=== PATIENT | female | born 1955 | race Caucasian/White ===

== ENCOUNTER 2017-11-30 19:03 | Observation (INO) | payer OTHER ==
[~2017-11-30] VITALS: Ht 165.1 cm; Wt 68.0 kg
[~2017-11-30 19:03] MED LIST: ATORVASTATIN CA10 MG PO; GABAPENTIN300 MG PO; PERCOCET 325 MG1 TA2 PO; TYLENOL XSTR500 MG PO; VALACYCLOVIR1 GM PO
--- NOTE | 2017-11-30 19:20 | ED CARDIAC/CP/PALPITATIONS ---
History of Present Illness General Chief Complaint: Chest Pain Stated Complaint: SENT IN BY WALK IN FOR CP Source: patient, family Exam Limitations: no limitations Vital Signs & Intake/Output Vital Signs & Intake/Output Vital Signs Date Time Temp Pulse Resp B/P B/P Pulse O2 O2 Flow FiO2 Mean Ox Delivery Rate 11/30 1955 Room Air 11/30 1911 98.2 106 18 147/87 98 Room Air Allergies Coded Allergies: guaifenesin (From MUCINEX) (PAIN IN BACK AND LUNGS 11/30/17) Uncoded Allergies: SEASONAL (06/13/15) Reconcile Medications Aspirin (Ecotrin*) 81 MG TABLET. 1 TAB PO QPM HEART/BLOOD (Reported) Atorvastatin Calcium 10 MG TABLET 1 TAB PO DAILY CHOLESTEROL (Reported) Triage Note: PER PT FEW DAYS OF CP UNDER L BREAST COMES AND GOES TODAY STARTED AT 1700, BURNING TO ESOPHAGUS, NO SOB NO NAUSEA. PAIN CURRENTLY 0/10 Triage Nurses Notes Reviewed? yes Onset: Gradual Duration: day(s): (5) Timing: recent history Location: LEFT CHEST/BREAST Radiation: LEFT BACK, LEFT SHOULDER Activities at Onset: activity, rest Prior Chest Pain/Card Workup: no prior chest pain Aspirin Today: 81 mg x 1 Associated Symptoms: OCC SOB, OCC DIAPHORESIS HPI: This is a 62-year-old female with history of high cholesterol who presents to the ER with her family for chief complaint of left-sided chest pain on and off since Saturday evening. Saturday evening she states it felt like a burning sensation and thought maybe something she ate. She has experienced multiple times in the last several days. Occasional shortness of breath and occasional sweating. 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 No history of previous coronary artery disease. She is compliant with her medications. She had no chest pain at triage and took an aspirin 81 mg prior to arrival however states she states now she feels a pinching sensation underneath her left breast. Sometimes it goes to her back and sometimes it goes up to her left shoulder. She has never seen a smelting engineer before. Positive family history of coronary artery disease in mother and grandmother. Patient denies any fever chills or productive cough. She denies any prolonged recent travel or blood clotting disorders. Past History Travel History Traveled to [place] past 21 day No Medical History Any Pertinent Medical History? see below for history Neurological: NONE EENT: NONE Cardiovascular: hyperlipidemia Respiratory: NONE Gastrointestinal: NONE Hepatic: NONE Renal: NONE Musculoskeletal: NONE Psychiatric: anxiety Endocrine: NONE Blood Disorders: NONE Cancer(s): NONE BASE REMOVER/Reproductive: NONE Surgical History Surgical History: C-SECT X 4 Psychosocial History What is your primary language Mozambican Tobacco Use: Never used Family History Comment: MOTHER CAD, DM GRANDMOTHER CAD BROTHER RUPTURED CEREBRAL ANEURYSM Hx Contributory? Yes Review of Systems Review of Systems Constitutional: Reports: diaphoresis. Denies: chills, fever. EENTM: Reports: no symptoms. Respiratory: Reports: short of breath. Denies: cough, sputum production. Cardiovascular: Reports: chest pain. Denies: palpitations, peripheral edema. GI: Denies: abdominal pain. Genitourinary: Reports: no symptoms. Musculoskeletal: Reports: back pain. Skin: Reports: no symptoms. Neurological/Psychological: Reports: no symptoms. Hematologic/Endocrine: Denies: bruising, bleeding, polyuria, polydipsia. Immunologic/Allergic: Reports: no symptoms. All Other Systems: Reviewed and Negative Physical Exam Physical Exam General Appearance: well developed/nourished, alert, awake, mild distress Head: atraumatic, normal appearance Eyes: Bilateral: normal appearance, PERRL, EOMI. Ears, Nose, Throat: normal pharynx, normal ENT inspection, hearing grossly normal Neck: normal inspection, supple, JVD Respiratory: normal breath sounds, chest non-tender, no respiratory distress Cardiovascular: regular rate/rhythm, normal peripheral pulses Gastrointestinal: normal bowel sounds, soft, non-tender Back: normal inspection, normal range of motion Extremities: normal inspection, normal capillary refill, normal range of motion, no edema Neurologic/Psych: no motor/sensory deficits, awake, alert, oriented x 3, normal gait, normal mood/affect Skin: intact, normal color, warm/dry Core Measures ACS in differential dx? Yes CVA/TIA Diagnosis No Sepsis Present: No Sepsis Focused Exam Completed? No Progress Differential Diagnosis: AMI, aortic dissection, musculoskeletal pain, pneumonia, pneumothorax, pulmonary embolism, PUD/GERD, unstable angina Plan of Care: Orders Procedure Date/time Status Heart Healthy Diet 12/[address] in observation 11/30 2037 Active ED Holding Orders 11/30 2037 Active Vital Signs 11/30 2037 Active Code Status 11/30 2037 Active XRY-CHEST XRAY, TWO VIEWS 11/30 2008 Active PARTIAL THROMBOPLASTIN TIME 11/30 1932 Complete PROTHROMBIN TIME 11/30 1932 Complete D-DIMER 11/30 1932 Complete Telemetry/Airline Customer Service Agent 11/30 1919 Active TROPONIN LEVEL 11/30 1910 Complete LIPASE 11/30 1910 Complete COMPREHENSIVE METABOLIC PANEL 11/30 1910 Complete CBC WITHOUT DIFFERENTIAL 11/30 1910 Complete AMYLASE 11/30 1910 Complete EKG 11/30 1903 Active Laboratory Tests 11/30/171947: Anion Gap 15, Estimated GFR > 60, BUN/Creatinine Ratio 21.4, Glucose 101 H, Calcium 9.6, Total Bilirubin 0.3, AST 26, ALT 33, Alkaline Phosphatase 86, Troponin I < 0.01, Total Protein 7.5, Albumin 4.3, Globulin 3.2, Albumin/ Globulin Ratio 1.3, Amylase 82, Lipase 128 11/30/171944: PT 11.2, INR 1.07, APTT 32, D-Dimer High Sensitivty < 200, CBC w Diff NO MAN DIFF REQ, RBC 4.61, MCV 84.8, MCH 27.9, MCHC 32.9 L, RDW 14.9 H, MPV 8.6, Gran % 53.7, Lymphocytes % 36.0, Monocytes % 7.1, Eosinophils % 2.6, Basophils % 0.6, Absolute Granulocytes 4.9, Absolute Lymphocytes 3.3, Absolute Monocytes 0.6, Absolute Eosinophils 0.2, Absolute Basophils 0.1 Diagnostic Imaging: Viewed by Me: Radiology Read. Discussed w/RAD: Radiology Read. Initial ED EKG: NSR, LBBB Prior EKG: changed Rhythm Strip: normal sinus rhythm Comments: PATIENT: JOSE NDIAYE PRESENT AGE: 62 PATIENT ACCOUNT NO: [id number] : 54 LOCATION: [facility] ORDERING PHYSICIAN: Lucy Martínez MD SERVICE DATE: 11/30/17 EXAM TYPE: RAD - XRY-CHEST XRAY, TWO VIEWS EXAMINATION: XR CHEST CLINICAL INFORMATION: Left-sided chest pain, mild shortness of breath COMPARISON: 12/14/2014 TECHNIQUE: 2 views of the chest were obtained. FINDINGS: Heart size is normal. Mediastinal contours are normal. Lungs are clear without consolidation, effusion or pneumothorax. Visualized osseous structures appear intact. IMPRESSION: No acute pulmonary process. DICTATED BY: Charleen Li MD DATE/TIME DICTATED:11/30/172128 CONTROLS ENGINEER:CONNOR DATE/TIME TRANSCRIBED:11/30/172128 CONFIDENTIAL, DO NOT COPY WITHOUT APPROPRIATE AUTHORIZATION. <Electronically signed in Other Vendor System> SIGNED BY: Charleen Li MD 11/30/172134 Departure Departure Time of Disposition: 2037 Disposition: STILL A PATIENT Condition: Stable Clinical Impression Primary Impression: Acute electrocardiogram changes Referrals: Janeen Lowery MD (PCP/Family) Departure Forms: Customer Survey General Discharge Information Observation Note Spoke With: Xander TARANGO,[facility] Physician Advisor Notified: ERLIN BROOKE DO Place Patient In: Non-ED OBS Care Area Rationale for Observation: My rational for observation is as follows [TELE MONITOR, SERIAL EKG/TROPONIN, ASPIRIN, NITRATES, CARDIOLOGY CONSULTATION, CONSIDER ECHOCARDIOGRAM]. Critical Care Note Critical Care Note Critical Care Time: non-applicable
[2017-11-30 19:58] LABS: ABSOLUTE BASOPHIL COUNT 0.1 /CUMM (0.0-0.2); ABSOLUTE EOSINOPHIL COUNT 0.2 /CUMM (0.0-0.7); ABSOLUTE GRANULOCYTE CT 4.9 /CUMM (1.4-6.5); ABSOLUTE LYMPH COUNT 3.3 /CUMM (1.2-3.4); ABSOLUTE MONOCYTE COUNT 0.6 /CUMM (0.10-0.60); BASOPHIL % 0.6 % (0.0-2.0); EOSINOPHIL % 2.6 % (0-5); GRANULOCYTE % 53.7 % (42.2-75.2); MEAN CORPUSCULAR HGB 27.9 PG (27.0-31.0); MEAN CORPUSCULAR HGB CONC 32.9 G/DL (33.0-37.0); MEAN CORPUSCULAR VOLUME 84.8 FL (81.0-99.0); MEAN PLATELET VOLUME 8.6 FL (7.4-10.4); PLATELET COUNT 273 /CUMM (130-400); RBC DISTRIBUTION WIDTH 14.9 % (11.5-14.5); RED BLOOD CELL CT 4.61 /CUMM (4.20-5.40); WHITE BLOOD CELL COUNT 9.2 /CUMM (4.8-10.8)
[2017-11-30 20:07] LABS: PT 11.2 SEC (9.4-12.5); PTT 32 SEC (25-37)
[2017-11-30] MEDS ORDERED: ATORVASTATIN CA10 M1 PO (20:27)
[2017-11-30] MEDS ORDERED: ASPIRIN EC81 M1 PO (20:27)
--- NOTE | 2017-11-30 21:03 | History & Physical ---
Brodie TARANGO,[facility] 11/30/172101: General Information and HPI MD Statement: I have seen and personally examined JOSE REED and documented this H&P. The patient is a 62 year old F who presented with a patient stated chief complaint of [Chest Pain]. Source of Information: patient Exam Limitations: no limitations History of Present Illness: Ms. Reed is a 62 y/o lady with PMH significant for hyperlipidemia and anxiety presents with chest pain under her left breast starting this Saturday. Patient was in her usual state of health until this Saturday when she noticed burning chest pain under her left breast, sometimes radiating to her back. She took Tylenol for the pain, thinking that she might have pulled her muscle, which helped relieve the pain. Pain is nonexertional without any precipitating or aggravating factors. Continues to get the chest pain on and off. Her last episode of chest pain this evening, when her took her to the urgent care clinic and she was sent to the ER after finding some changes in her EKG. Also reports 3 episodes of diarrhea on Saturday which have resolved since then. Denies any shortness of breath, palpitations, cough, sputum production, fever/ chills, abdominal pain, diarrhea or nausea/vomiting. Also denies any previous episodes of similar chest pain. Allergies/Medications Allergies: Coded Allergies: guaifenesin (From MUCINEX) (PAIN IN BACK AND LUNGS 11/30/17) Uncoded Allergies: SEASONAL (06/13/15) Home Med list Aspirin (Ecotrin*) 81 MG TABLET.DR 1 TAB PO QPM HEART/BLOOD (Reported) Atorvastatin Calcium 10 MG TABLET 1 TAB PO DAILY CHOLESTEROL (Reported) Past History Travel History Traveled to [place] past 21 day No Medical History Neurological: NONE EENT: NONE Cardiovascular: hyperlipidemia Respiratory: NONE Gastrointestinal: NONE Hepatic: NONE Renal: NONE Musculoskeletal: NONE Psychiatric: anxiety Endocrine: NONE Blood Disorders: NONE Cancer(s): NONE HEAD OF HISTORY/Reproductive: NONE Surgical History Surgical History: C-SECT X 4 Past Family/Social History Psychosocial History Where do you live? Home Who Do You Live With? spouse Services at Home: None Smoking Status: Never Smoked ETOH Use: denies use Illicit Drug Use: denies illicit drug use Functional Ability ADLs Independent: dressing, eating, toileting, bathing. Ambulation: independent IADLs Independent: shopping, housework, finances, food prep, telephone, transportation , medication admin. Review of Systems Review of Systems Constitutional: Reports: no symptoms. EENTM: Reports: no symptoms. Cardiovascular: Reports: chest pain. Respiratory: Reports: no symptoms. GI: Reports: no symptoms. Genitourinary: Reports: no symptoms. Musculoskeletal: Reports: no symptoms. Skin: Reports: no symptoms. Neurological/Psychological: Reports: no symptoms. Hematologic/Endocrine: Reports: no symptoms. Immunologic/Allergic: Reports: no symptoms. All Other Systems: Reviewed and Negative Exam & Diagnostic Data Last 24 Hrs of Vital Signs/I&O Vital Signs Date Time Temp Pulse Resp B/P B/P Pulse O2 O2 Flow FiO2 Mean Ox Delivery Rate 11/30 2305 98.1 86 18 110/62 95 Room Air Room Air 11/30 2211 98.5 85 14 105/56 97 Room Air 11/30 1956 Room Air 11/30 1911 98.2 106 18 147/87 98 Room Air Intake & Output 12/01 0800 12/01 0000 11/30 1600 Intake Total 200 Output Total Balance 200 Intake, Oral 200 Patient 150 lb Weight Physical Exam General Appearance Alert, Oriented X3, Cooperative, No Acute Distress Skin No Rashes, No Breakdown HEENT Atraumatic, PERRLA, EOMI, Mucous Membr. moist/pink Neck Supple, No JVD, No thryomegaly Cardiovascular Regular Rate, Normal S1, Normal S2, No Murmurs Lungs Clear to Auscultation, Normal Air Movement Abdomen Normal Bowel Sounds, Soft, No Tenderness Extremities No Clubbing, No Cyanosis, No Edema, Normal Pulses Last 24 Hrs of Labs/Randy: Laboratory Tests 12/01/17 0200: Troponin I Pending 11/30/171947: Anion Gap 15, Estimated GFR > 60, BUN/Creatinine Ratio 21.4, Glucose 101 H, Hemoglobin A1c Pending, Calcium 9.6, Total Bilirubin 0.3, AST 26, ALT 33, Alkaline Phosphatase 86, Troponin I < 0.01, Total Protein 7.5, Albumin 4.3, Globulin 3.2, Albumin/Globulin Ratio 1.3, Amylase 82, Lipase 128, TSH 3.550 11/30/171944: PT 11.2, INR 1.07, APTT 32, D-Dimer High Sensitivty < 200, CBC w Diff NO MAN DIFF REQ, RBC 4.61, MCV 84.8, MCH 27.9, MCHC 32.9 L, RDW 14.9 H, MPV 8.6, Gran % 53.7, Lymphocytes % 36.0, Monocytes % 7.1, Eosinophils % 2.6, Basophils % 0.6, Absolute Granulocytes 4.9, Absolute Lymphocytes 3.3, Absolute Monocytes 0.6, Absolute Eosinophils 0.2, Absolute Basophils 0.1 Diagnostic Data EKG Results NSR with LBBB Heart Rate 66 QTc 449 CXR Results IMPRESSION: No acute pulmonary process. Assessment/Plan Assessment: Ms. Reed is a 62 y/o lady with PMH significant for hyperlipidemia and anxiety presents with chest pain under her left breast starting this Saturday. A/P; 1. Chest Pain; recent EKG shows left bundle branch block but the pattren has slightly changed from the previous EKG(from 2014). Atypical Chest pain could be a presentation of MD in females. - We will observe the patient on telemetry floor from 24 to 48 hours. - Serial troponins and EKG to rule out ACS(initial troponin level is negative). - Echocardiogram - Cardiology consult in am. - Lipid panel and hemoglobin A1c. - Continue aspirin and atorvastatin(will increase the dose to 40 mg daily). - Notroglycerin as needed for chest pain. DVT prophylaxis; subcutaneous Lovenox Vision is full code As Ranked By This Provider Problem List: 1. Atypical chest pain Core Measures/Misc (07/21) Acute Coronary Syndrome ACS Diagnosis: No Congestive Heart Failure Congestive Heart Failure Diagnosis No Cerebrovascular Accident CVA/TIA Diagnosis: No VTE (View Protocol) VTE Risk Factors Age>40 No Mechanical VTE Prophylaxis d/t N/A MechProphylax Ordered No VTE Pharm Prophylaxis d/t NA PharmProphylax ordered Sepsis (View protocol) Sepsis Present: No Xander TARANGO, [facility] 12/01/17 0322: Attending MD Review Statement Attending Statement Attending MD Statement: examined this patient, discuss w/resident/PA/STRAIGHT EDGER, agreed w/resident/PA/STRAIGHT EDGER, discussed with family, reviewed images, amended to note Attending Assessment/Plan: 62 yo F with h/o HLD, ?TIA, family h/o CAD in mother (age 80's), is here for evaluation of left sided chest pain. Patient describes left sided sharp pain under her left breast, intermittent, radiating to the back at times, associated with dyspnea and palpitations, with no relation to exertion or rest. She first noticed it 4 days ago soon after dinner followed by 2-3 episodes of diarrhea, which she attributed to 'gas'/stomach virus. Over the past 3 days, she has had it intermittently (character of pain fluctuates between sharp or muscle pull ' type'), but this has not affected her work. She took tylenol at times with some relief. Today she had recurrence of chest pain but it did not resolve, so she went to a walk-in clinic, who then referred her to ER. She received nitro in the ER and she is currently pain free. She takes a baby aspirin daily. She has never seen a steel die press set up operator or undergone stress test. Vitals stable. Examination is unremarkable. Labs are benign with negative troponin. EKG: sinus rhythm with LBBB (new), QRS duration seems to have increased from prior. CXR: no acute process. Assessment and plan: 1. Chest pain seems atypical or musculoskeletal in origin. However, given her risk factors would be prudent to rule out ACS. 2. New LBBB 3. Hyperlipidemia - 23 hour observation on Telemetry - Serial EKG and troponin - Obtain echocardiogram to assess LV function and valvular disorders - Cardio consult in AM - Continue aspirin and statin - Nitro as needed for pain - Supplemental oxygen - Check lipid panel, TSH, free T4 and HbA1c DVT ppx Lovenox. Full code. Observation Initial Note - I have personally examined JOSE REED on 12/01/17 at 0322. The disposition of JOSE REED is uncertain at this time and before a determination can be made, she requires a period of observation for the following reasons [Chest pain, rule out ACS] [place] TARANGO,Luis 12/01/17 0453: Resident Review Statement Resident Statement: examined this patient, discussed with digital marketing intern, agreed with digital marketing intern Other Findings: This is a 62-year-old [place] woman with past medical history significant for hyperlipidemia, one questionable episode of TIA, who comes in for chief complaint of chest pain. She described it as a sharp pain under her left breast that radiates to her back that first started on Saturday. The pain is intermittent and does not extend to jaw or l. arm, it is not exertional in nature and she states it worsens with emotional stress. She initially thought it was a muscle pull and used Tylenol with some relief. She has noted this pain intermittently for the past 4 days. This evening around 7pm she noted the pain return again. Since it seemed a little more persistent than usual and she felt some additional malaise, she went to urgent care who sent her to ED for EKG changes. Patient received nitroglycerin in ED and noted relief of her discomfort. She does take a baby aspirin every day and is on a statin for the last 6 months. Vitals: 98.2, 106, 18, 147/87, satting 90% on room air. Labs: Glucose 101, negative troponin 1. Negative amylase and lipase. Negative d-dimer. INR 1.07. EKG EKG done at 2:50 shows inversions in V3 and LBB. Subsequent EKG shows LBBB with resolution of inversion. Rate 66 and QTC 43 ASSESSMENT: This is a 62-year-old female with past medical history significant for hyperlipidemia hospital previous TIA, who comes in with a chief complaint of chest pain. While the chest pain does sound atypical in nature and pt has ESTUARDO score 2 (ASA use and angina in 24 hrs); however, given EKG changes patient will come to telemetry floor under OBS status for further work up. PLAN: Chest pain: Seems atypical in nature; however there are some EKG changes concerning for LBBB. Note that pt's old EKG in 2014 is suggestive of LBB changes as well. Not sure of acuity of change. * Cardio consult * EKG and troponins * Echocardiogram * Continue aspirin * Continue statin but at higher dose * Nitroglycerin when necessary chest pain * PRN O2 for sats >92 * Lipid panel in AM * Check thyroid panel * Check A1c
--- NOTE | 2017-11-30 21:35 | RADIOLOGY REPORT ---
EXAMINATION: XR CHEST CLINICAL INFORMATION: Left-sided chest pain, mild shortness of breath COMPARISON: 12/14/2014 TECHNIQUE: 2 views of the chest were obtained. FINDINGS: Heart size is normal. Mediastinal contours are normal. Lungs are clear without consolidation, effusion or pneumothorax. Visualized osseous structures appear intact. IMPRESSION: No acute pulmonary process.
[2017-11-30 23:05] VITALS: BP 110/62
[2017-12-01 07:03] VITALS: BP 108/64
--- NOTE | 2017-12-01 08:47 | PN- Housestaff ---
Burke TARANGO,Cammy 12/01/17 0846: Subjective Follow-up For: Chest pain Complaints: no complaints Tele-Events Since Last Visit: Sinus rhythm heart rate 90 Subjective: Patient was examined at bedside today. She was sitting comfortably in her bed. No overnight events. She offers no complaints. She denies chest pain, chest pressure, left arm pain, jaw pain, shortness of breath, nausea, abdominal pain. Review of Systems Constitutional: Reports: no symptoms. Cardiovascular: Reports: no symptoms. Respiratory: Reports: no symptoms. Gastrointestinal: Reports: no symptoms. Genitourinary: Reports: no symptoms. Objective Last 24 Hrs of Vital Signs/I&O Vital Signs Date Time Temp Pulse Resp B/P B/P Pulse O2 O2 Flow FiO2 Mean Ox Delivery Rate 12/01 0703 97.9 68 18 108/64 96 Room Air 11/30 2305 98.1 86 18 110/62 95 Room Air Room Air 11/30 2211 98.5 85 14 105/56 97 Room Air 11/30 1955 Room Air 11/30 191 98.2 106 18 147/87 98 Room Air Intake & Output 12/01 1600 12/01 0800 12/01 0000 Intake Total 100 200 Output Total Balance 100 200 Intake, Oral 100 200 Patient 150 lb Weight Physical Exam General Appearance: Alert, Oriented X3, Cooperative, No Acute Distress Cardiovascular: Regular Rate, Normal S1, Normal S2, No Murmurs Lungs: Normal Air Movement Abdomen: Soft, No Tenderness, No Hepatospenomegaly Neurological: Strength at 5/5 X4 Ext, Normal Tone, Sensation Intact Extremities: No Edema Vascular: Normal Pulses Current Medications: Current Medications Sig/Benajmin Start time Last Medication Dose Route Stop Time Status Admin Acetaminophen 650 MG Q6P PRN 11/30 2199 AC PO Acetaminophen 1,000 MG Q6P PRN 11/30 2199 AC IV Aspirin Buffered 81 MG QPM 12/01 2199 AC PO Atorvastatin Calcium 40 MG 1700 11/30 2214 AC 12/01 PO 0201 Enoxaparin Sodium 40 MG DAILY 12/01 1000 AC 12/01 SC 1000 Morphine Sulfate 4 MG Q4P PRN 11/30 2199 AC IV Nitroglycerin 0.5 GM Q6P PRN 11/30 2214 AC TOP Nitroglycerin 0.4 MG ONCE ONE 11/30 1944 DC 11/30 SL 11/30 Ondansetron HCl 4 MG Q6P PRN 11/300 AC IV Last 24 Hrs of Lab/Randy Results Last 24 Hrs of Labs/Mics: Laboratory Tests 12/01/17 1005: Troponin I < 0.01 12/01/17 1005: Anion Gap 16, Estimated GFR > 60, BUN/Creatinine Ratio 21.7, Triglycerides 66, Cholesterol 144, LDL Cholesterol, Calc 84, HDL Cholesterol 47, Cholesterol/HDL Ratio 3, CBC w Diff NO MAN DIFF REQ, RBC 4.33, MCV 85.3, MCH 28.3, MCHC 33.2, RDW 14.8 H, MPV 8.8, Gran % 55.6, Lymphocytes % 33.5, Monocytes % 6.9, Eosinophils % 3.5, Basophils % 0.5, Absolute Granulocytes 3.6, Absolute Lymphocytes 2.2, Absolute Monocytes 0.5, Absolute Eosinophils 0.2, Absolute Basophils 0 12/01/17 0200: Troponin I < 0.01 11/30/171947: Anion Gap 15, Estimated GFR > 60, BUN/Creatinine Ratio 21.4, Glucose 101 H, Hemoglobin A1c Pending, Calcium 9.6, Total Bilirubin 0.3, AST 26, ALT 33, Alkaline Phosphatase 86, Troponin I < 0.01, Total Protein 7.5, Albumin 4.3, Globulin 3.2, Albumin/Globulin Ratio 1.3, Amylase 82, Lipase 128, TSH 3.550 11/30/171944: PT 11.2, INR 1.07, APTT 32, D-Dimer High Sensitivty < 200, CBC w Diff NO MAN DIFF REQ, RBC 4.61, MCV 84.8, MCH 27.9, MCHC 32.9 L, RDW 14.9 H, MPV 8.6, Gran % 53.7, Lymphocytes % 36.0, Monocytes % 7.1, Eosinophils % 2.6, Basophils % 0.6, Absolute Granulocytes 4.9, Absolute Lymphocytes 3.3, Absolute Monocytes 0.6, Absolute Eosinophils 0.2, Absolute Basophils 0.1 Assessment/Plan Assessment: Ms. Reed is a 62 y/o lady with PMH significant for hyperlipidemia and anxiety presents with chest pain under her left breast starting this Saturday. Observed in telemetry for further evaluation and management. A/P; 1. Chest Pain Patient admitted for chest pain with EKG finding of left bundle branch block. Today EKG shows a normal sinus rhythm with first-degree AV block. Troponin so far negative. - We will observe the patient on telemetry floor from 24 to 48 hours. - Echocardiogram - Seen by cardiology who suggested due to stress test tomorrow. -Nothing by mouth from midnight. -We will continue aspirin, atorvastatin, nitroglycerin. -Patient sodium is 147 today. We'll encourage by mouth intake. And follow her BEP in a.m. DVT prophylaxis; subcutaneous Lovenox full code Diet-heart healthy diet Problem List: 1. Atypical chest pain Pain Ratin Pain Location: CHEST P[AIN Pain Goal: Remain pain free Pain Plan: NITROGLYCERINE Tomorrow's Labs & Rationales: NONE Pedro Hurtado 12/01/17 1501: Attending MD Review Statement Attending Statement Attending MD Statement: examined this patient, discuss w/resident/PA/MESSENGER FLOORPERSON, agreed w/resident/PA/MESSENGER FLOORPERSON, discussed with family, reviewed EMR data (avail), discussed with nursing Attending Assessment/Plan: Pt with chest pain on and off since saturday in precordial region radiating to the back and left shoulder area. D/w Cardiology. Plan to cont on telemetry and will get stress test tomorrow. Echo pending. based on test results will plan further care plan. d/w pt and pts family at bedside the care plan.
[2017-12-01 10:56] LABS: ABSOLUTE BASOPHIL COUNT 0 /CUMM (0.0-0.2); ABSOLUTE EOSINOPHIL COUNT 0.2 /CUMM (0.0-0.7); ABSOLUTE GRANULOCYTE CT 3.6 /CUMM (1.4-6.5); ABSOLUTE LYMPH COUNT 2.2 /CUMM (1.2-3.4); ABSOLUTE MONOCYTE COUNT 0.5 /CUMM (0.10-0.60); BASOPHIL % 0.5 % (0.0-2.0); EOSINOPHIL % 3.5 % (0-5); GRANULOCYTE % 55.6 % (42.2-75.2); MEAN CORPUSCULAR HGB 28.3 PG (27.0-31.0); MEAN CORPUSCULAR HGB CONC 33.2 G/DL (33.0-37.0); MEAN CORPUSCULAR VOLUME 85.3 FL (81.0-99.0); MEAN PLATELET VOLUME 8.8 FL (7.4-10.4); PLATELET COUNT 250 /CUMM (130-400); RBC DISTRIBUTION WIDTH 14.8 % (11.5-14.5); RED BLOOD CELL CT 4.33 /CUMM (4.20-5.40); WHITE BLOOD CELL COUNT 6.6 /CUMM (4.8-10.8)
--- NOTE | 2017-12-01 13:53 | Cons- Cardiology ---
General Information and HPI Consulting Request Date of Consult: 12/01/17 Requested By: Xander TARANGO,Yulisa Reason for Consult: Chest pain, abnormal EKG History of Present Illness: Patient is a 62-year-old female with history of anxiety presenting with chest pain. The chest pain has been intermittent since Saturday. She describes as a sharp pain located in the left side of her chest and under the left breast radiating to the back. It lasts anywhere from a few minutes to hours per episode. Yesterday she had the pain for approximately 4 hours and it was an 8 out of 10 in severity. She is currently pain-free. She was sent to the hospital from urgent care, where she was noted to have evidence of EKG changes. No palpitations. No syncope. No orthopnea. No lightheadedness or dizziness. No nausea or vomiting. Allergies/Medications Allergies: Coded Allergies: guaifenesin (From MUCINEX) (PAIN IN BACK AND LUNGS 11/30/17) Uncoded Allergies: SEASONAL (06/13/15) Home Med List: Aspirin (Ecotrin*) 81 MG TABLET.DR 1 TAB PO QPM HEART/BLOOD (Reported) Atorvastatin Calcium 10 MG TABLET 1 TAB PO DAILY CHOLESTEROL (Reported) Current Medications: Current Medications Sig/Benjamin Start time Last Medication Dose Route Stop Time Status Admin Acetaminophen 650 MG Q6P PRN 11/30 2200 AC PO Acetaminophen 1,000 MG Q6P PRN 11/30 2200 AC IV Aspirin Buffered 81 MG QPM 12/01 2200 AC PO Atorvastatin Calcium 40 MG 1700 11/30 2215 AC 12/01 PO 0201 Enoxaparin Sodium 40 MG DAILY 12/01 1000 AC 12/01 SC 1000 Morphine Sulfate 4 MG Q4P PRN 11/30 2200 AC IV Nitroglycerin 0.5 GM Q6P PRN 11/30 2214 AC TOP Nitroglycerin 0.4 MG ONCE ONE 11/30 1944 DC 11/30 SL 11/30 Ondansetron HCl 4 MG Q6P PRN 11/30 2200 AC IV Review of Systems Review of Systems: No rash. No tremor. No syncope. All other systems were reviewed, and were noted to be negative. Past History Travel History Traveled to [place] past 21 day No Medical History Blood Transfusion Hx: No Neurological: NONE EENT: NONE Cardiovascular: hyperlipidemia Respiratory: NONE Gastrointestinal: NONE Hepatic: NONE Renal: NONE Musculoskeletal: NONE Psychiatric: anxiety Endocrine: NONE Blood Disorders: NONE Cancer(s): NONE GUTTER HANGER/Reproductive: NONE Surgical History Surgical History: C-SECT X 4 Family History Relations & Conditions If Any: MOTHER Myocardial infarction, Onset: 60+. Psychosocial History Where Do You Live? Home Who Do You Live With? spouse Services at Home: None Smoking Status: Never Smoked ETOH Use: denies use Illicit Drug Use: denies illicit drug use Functional Ability ADLs Independent: dressing, eating, toileting, bathing. Ambulation: independent IADLs Independent: shopping, housework, finances, food prep, telephone, transportation , medication admin. Exam & Diagnostic Data Vital Signs and I&O Vital Signs Date Time Temp Pulse Resp B/P B/P Pulse O2 O2 Flow FiO2 Mean Ox Delivery Rate 12/01 0703 97.9 68 18 108/64 96 Room Air 11/30 2305 98.1 86 18 110/62 95 Room Air Room Air 11/30 2212 98.5 85 14 105/56 97 Room Air 11/30 1956 Room Air 11/30 1912 98.2 106 18 147/87 98 Room Air Intake & Output 12/01 1600 12/01 0800 12/01 0000 11/30 1600 11/30 0800 11/30 0000 Intake Total 100 200 Output Total Balance 100 200 Intake, Oral 100 200 Patient 150 lb Weight Physical Exam: Gen: The patient is in no acute distress HEENT: Normal nose, ears, and oropharynx. Pupils equal bilaterally. Conjunctiva normal. Neck: Supple with no JVD, no masses, and no thyromegaly Lungs: Clear to auscultation with normal respiratory effort Heart: RRR, S1, S2, no murmurs. No peripheral edema, 2+ pulses in the lower extremities bilaterally Abdomen: Soft, nontender, no masses. No hepatomegaly. No splenomegaly Extremities: No clubbing or cyanosis. Normal muscle strength in the upper and lower extremities Skin: Normal skin turgor with no skin ulcers or lesions noted. Neuro: Cranial nerves intact. Sensation intact Psych: Alert and oriented 3 with appropriate affect Labs/Randy Results: Laboratory Tests 12/01 12/01 12/01 1005 1005 0200 Chemistry Sodium (137 - 145 mmol/L) 147 H Potassium (3.5 - 5.1 mmol/L) 3.8 Chloride (98 - 107 mmol/L) 105 Carbon Dioxide (22 - 30 mmol/L) 26 Anion Gap (5 - 16) 16 BUN (7 - 17 mg/dL) 13 Creatinine (0.5 - 1.0 mg/dL) 0.6 Estimated GFR (>60 ml/min) > 60 BUN/Creatinine Ratio (7 - 25 %) 21.7 Troponin I (< 0.11 ng/ml) < 0.01 < 0.01 Triglycerides (<150 mg/dL) 66 Cholesterol (<200 MG/DL) 144 LDL Cholesterol, Calc (65 - 129 mg/dL) 84 HDL Cholesterol (40 - 60 mg/dL) 47 Cholesterol/HDL Ratio (0.00 - 4.23 %) 3 Hematology CBC w Diff NO MAN DIFF REQ WBC (4.8 - 10.8 /CUMM) 6.6 RBC (4.20 - 5.40 /CUMM) 4.33 Hgb (12.0 - 16.0 G/DL) 12.3 Hct (37 - 47 %) 37.0 MCV (81.0 - 99.0 FL) 85.3 MCH (27.0 - 31.0 PG) 28.3 MCHC (33.0 - 37.0 G/DL) 33.2 RDW (11.5 - 14.5 %) 14.8 H Plt Count (130 - 400 /CUMM) 250 MPV (7.4 - 10.4 FL) 8.8 Gran % (42.2 - 75.2 %) 55.6 Lymphocytes % (20.5 - 51.1 %) 33.5 Monocytes % (1.7 - 9.3 %) 6.9 Eosinophils % (0 - 5 %) 3.5 Basophils % (0.0 - 2.0 %) 0.5 Absolute Granulocytes (1.4 - 6.5 /CUMM) 3.6 Absolute Lymphocytes (1.2 - 3.4 /CUMM) 2.2 Absolute Monocytes (0.10 - 0.60 /CUMM) 0.5 Absolute Eosinophils (0.0 - 0.7 /CUMM) 0.2 Absolute Basophils (0.0 - 0.2 /CUMM) 0 11/30 194 Chemistry Sodium (137 - 145 mmol/L) 145 Potassium (3.5 - 5.1 mmol/L) 3.5 Chloride (98 - 107 mmol/L) 104 Carbon Dioxide (22 - 30 mmol/L) 26 Anion Gap (5 - 16) 15 BUN (7 - 17 mg/dL) 15 Creatinine (0.5 - 1.0 mg/dL) 0.7 Estimated GFR (>60 ml/min) > 60 BUN/Creatinine Ratio (7 - 25 %) 21.4 Glucose (65 - 99 mg/dL) 101 H Hemoglobin A1c (4.2 - 5.8 %) Pending Calcium (8.4 - 10.2 mg/dL) 9.6 Total Bilirubin (0.2 - 1.3 mg/dL) 0.3 AST (14 - 36 U/L) 26 ALT (9 - 52 U/L) 33 Alkaline Phosphatase (<127 U/L) 86 Troponin I (< 0.11 ng/ml) < 0.01 Total Protein (6.3 - 8.2 g/dL) 7.5 Albumin (3.5 - 5.0 g/dL) 4.3 Globulin (1.9 - 4.2 gm/dL) 3.2 Albumin/Globulin Ratio (1.1 - 2.2 %) 1.3 Amylase (30 - 110 U/L) 82 Lipase (23 - 300 U/L) 128 TSH (0.270 - 4.200 uIU/mL) 3.550 Coagulation PT (9.4 - 12.5 SEC) 11.2 INR (0.90 - 1.19) 1.07 APTT (25 - 37 SEC) 32 D-Dimer High Sensitivty (0 - 243 ng/ml) < 200 Hematology CBC w Diff NO MAN DIFF REQ WBC (4.8 - 10.8 /CUMM) 9.2 RBC (4.20 - 5.40 /CUMM) 4.61 Hgb (12.0 - 16.0 G/DL) 12.8 Hct (37 - 47 %) 39.0 MCV (81.0 - 99.0 FL) 84.8 MCH (27.0 - 31.0 PG) 27.9 MCHC (33.0 - 37.0 G/DL) 32.9 L RDW (11.5 - 14.5 %) 14.9 H Plt Count (130 - 400 /CUMM) 273 MPV (7.4 - 10.4 FL) 8.6 Gran % (42.2 - 75.2 %) 53.7 Lymphocytes % (20.5 - 51.1 %) 36.0 Monocytes % (1.7 - 9.3 %) 7.1 Eosinophils % (0 - 5 %) 2.6 Basophils % (0.0 - 2.0 %) 0.6 Absolute Granulocytes (1.4 - 6.5 /CUMM) 4.9 Absolute Lymphocytes (1.2 - 3.4 /CUMM) 3.3 Absolute Monocytes (0.10 - 0.60 /CUMM) 0.6 Absolute Eosinophils (0.0 - 0.7 /CUMM) 0.2 Absolute Basophils (0.0 - 0.2 /CUMM) 0.1 Diagnostic Data EKG Results EKG tracings are independently reviewed. EKG from 11/30/17 at 1910 showed normal sinus rhythm at 95 with atypical left bundle-branch block EKG from 12/01/17 at 1010 showed normal sinus rhythm at 73 with first-degree AV block and nonspecific intraventricular conduction delay CXR Results Heart size is normal. Mediastinal contours are normal. Lungs are clear without consolidation, effusion or pneumothorax. Visualized osseous structures appear intact. Assessment/Plan Assessment/Plan The patient is a 62-year-old female presenting with intermittent chest pain over the last few days, with a prolonged episode yesterday which responded to nitroglycerin. She is noted to have intermittent left bundle-branch block which is a new finding for her. Myocardial infarction will be ruled out with negative troponin Recommendations: * Continue telemetry monitoring * Echocardiogram pending * Repeat EKG in the morning * Persantine sestamibi stress test tomorrow * Continue aspirin * Sublingual Nitroglycerin as needed for further chest pain Consult Acknowledgment - Thank you for your consult request.
[2017-12-01 14:14] VITALS: BP 110/62
--- NOTE | 2017-12-01 19:17 | ECHOCARDIOGRAM REPORT ---
JOSE NDIAYE Age: 62 : 1955 Gender: F Exam Date: 12/01/2017 09:34 Exam Location: 1 [address] Ht (in): 65 Wt (lb): 150 BSA: 1.78 BP: / Ordering Physician: Carrie Peter MD Referring Physician: Carrie Peter MD Technologist: Lorena Hussein [facility] Room Number: 172 Indications: CHEST PAIN Rhythm: Technical Quality: FINDINGS Left Ventricle Normal global left ventricular size, wall thickness, systolic function with no obvious regional wall motion abnormalities. Normal left ventricular ejection fraction estimated at 60-65%. Right Ventricle Normal right ventricular size and function. Right Atrium Normal right atrial size. Left Atrium Normal left atrial size. Mitral Valve Mild mitral annular calcification. Trace mitral regurgitation. Aortic Valve Aortic valve is normal in structure and function. Tricuspid Valve Tricuspid valve is normal in structure and function. Trace to mild tricuspid regurgitation. Pulmonic Valve Pulmonic valve not well visualized, grossly normal. Pericardium No pericardial effusion. Great Vessels Normal size aortic root and proximal ascending aorta. CONCLUSIONS Normal left and right ventricular systolic function. No significant valvular abnormalities noted. Emil Estevez M.D. (Electronically Signed) Final Date: 01 December 2017 19:17 MEASUREMENTS (Male / Female) Normal Values 2D ECHO LV Diastolic Diameter PLAX 4.5 cm 4.2 - 5.9 / 3.9 - 5.3 cm LV Systolic Diameter PLAX 3.1 cm 2.1 - 4.0 cm LV Fractional Shortening PLAX 31.1 % 25 - 46 % LV Ejection Fraction 2D Teich 59.0 % IVS Diastolic Thickness 0.7 cm LVPW Diastolic Thickness 0.8 cm LV Relative Wall Thickness 0.3 RV Internal Dim ED PLAX 2.4 cm 1.9 - 3.8 cm LVOT Diameter 2.1 cm Aortic Root Diameter 2.7 cm LA Systolic Diameter LX 3.6 cm 3.0 - 4.0 / 2.7 - 3.8 cm LA Volume 36.0 cm 18 - 58 / 22 - 52 cm Ascending Aorta Diameter 2.6 cm DOPPLER AV Peak Velocity 114.0 cm/s AV Peak Gradient 5.2 mmHg AV Mean Velocity 80.8 cm/s AV Mean Gradient 3.0 mmHg AV Velocity Time Integral 23.8 cm LVOT Peak Velocity 97.8 cm/s LVOT Peak Gradient 3.8 mmHg LVOT Mean Velocity 63.9 cm/s LVOT Mean Gradient 2.0 mmHg LVOT Velocity Time Integral 19.7 cm LVOT Stroke Volume 68.2 cm AV Area Cont Eq vti 2.9 cm AV Area Cont Eq pk 3.0 cm MV Peak Velocity 91.8 cm/s MV Peak Gradient 3.4 mmHg MV Mean Velocity 62.3 cm/s MV Mean Gradient 2.0 mmHg Mitral E Point Velocity 73.5 cm/s Mitral A Point Velocity 76.5 cm/s Mitral E to A Ratio 1.0 MV PHT Velocity 98.5 cm/s MV Deceleration [place] 382.0 cm/s MV Pressure Half Time 77.4 ms MV Area PHT 2.8 cm MV Deceleration Time 203.0 ms TR Peak Velocity 93.1 cm/s TR Peak Gradient 3.5 mmHg Right Atrial Pressure 5.0 mmHg Pulmonary Artery Systolic Pressu 8.5 mmHg Right Ventricular Systolic Press 8.5 mmHg PV Peak Velocity 93.7 cm/s PV Peak Gradient 3.5 mmHg PV Mean Velocity 60.3 cm/s PV Mean Gradient 2.0 mmHg PV Velocity Time Integral 17.1 cm LV E' Lateral Velocity 16.2 cm/s Mitral E to LV E' Lateral Ratio 4.5 LV E' Septal Velocity 7.4 cm/s Mitral E to LV E' Septal Ratio 9.9
[2017-12-01 21:44] VITALS: BP 118/70
[2017-12-02 06:24] VITALS: BP 106/54
--- NOTE | 2017-12-02 07:05 | PN- Housestaff ---
Burke TARANGO,Cammy 12/02/17 0704: Subjective Follow-up For: Atypical chest pain Complaints: no complaints Tele-Events Since Last Visit: Sinus rhythm heart rate 67 Review of Systems Constitutional: Reports: no symptoms. Cardiovascular: Reports: no symptoms. Respiratory: Reports: no symptoms. Gastrointestinal: Reports: no symptoms. Genitourinary: Reports: no symptoms. Musculoskeletal: Reports: no symptoms. Objective Last 24 Hrs of Vital Signs/I&O Vital Signs Date Time Temp Pulse Resp B/P B/P Pulse O2 O2 Flow FiO2 Mean Ox Delivery Rate 12/02 0624 97.8 54 20 106/54 96 Room Air 12/01 2144 98.1 78 18 118/70 94 12/01 1414 97.6 72 18 110/62 98 Room Air Intake & Output 12/02 1600 12/02 0800 12/02 0000 Intake Total 100 Output Total 600 Balance -500 Intake, Oral 100 Output, Urine 600 Physical Exam General Appearance: Alert, Oriented X3, Cooperative, No Acute Distress HEENT: Atraumatic, PERRLA Cardiovascular: Regular Rate, Normal S1, Normal S2 Lungs: Clear to Auscultation Abdomen: Normal Bowel Sounds, Soft, No Tenderness Neurological: Normal Speech, Strength at 5/5 X4 Ext, Normal Tone, Sensation Intact Extremities: No Edema Vascular: Normal Pulses Current Medications: Current Medications Sig/Benjamin Start time Last Medication Dose Route Stop Time Status Admin Acetaminophen 650 MG Q6P PRN 11/300 AC PO Acetaminophen 1,000 MG Q6P PRN 11/30 2200 AC IV Aspirin Buffered 81 MG QPM 12/01 2200 AC 12/01 PO 2206 Atorvastatin Calcium 40 MG 1700 11/30 2215 AC 12/01 PO 1710 Enoxaparin Sodium 40 MG DAILY 12/01 1000 AC 12/01 SC 1000 Morphine Sulfate 4 MG Q4P PRN 11/30 2199 AC IV Nitroglycerin 0.5 GM Q6P PRN 11/30 221 AC TOP Ondansetron HCl 4 MG Q6P PRN 11/30 2200 AC IV Last 24 Hrs of Lab/Randy Results Last 24 Hrs of Labs/Mics: Laboratory Tests 12/02/17 0715: Anion Gap 14, Estimated GFR > 60, BUN/Creatinine Ratio 23.3 12/01/17 1005: Troponin I < 0.01 12/01/17 1005: Anion Gap 16, Estimated GFR > 60, BUN/Creatinine Ratio 21.7, Triglycerides 66, Cholesterol 144, LDL Cholesterol, Calc 84, HDL Cholesterol 47, Cholesterol/HDL Ratio 3, CBC w Diff NO MAN DIFF REQ, RBC 4.33, MCV 85.3, MCH 28.3, MCHC 33.2, RDW 14.8 H, MPV 8.8, Gran % 55.6, Lymphocytes % 33.5, Monocytes % 6.9, Eosinophils % 3.5, Basophils % 0.5, Absolute Granulocytes 3.6, Absolute Lymphocytes 2.2, Absolute Monocytes 0.5, Absolute Eosinophils 0.2, Absolute Basophils 0 Assessment/Plan Assessment: Ms. Reed is a 62 y/o lady with PMH significant for hyperlipidemia and anxiety presents with chest pain under her left breast starting this Saturday. Observed in telemetry for further evaluation and management. A/P; 1. Chest Pain/dyslipidemia Patient admitted for chest pain with EKG finding of left bundle branch block. Today EKG shows a normal sinus rhythm with first-degree AV block. Troponin thus far negative. - We will observe the patient on telemetry floor from 24 to 48 hours. - Echocardiogram pending, and for stress test today. She is nothing by mouth. We will continue all her medication aspirin, atorvastatin, nitroglycerin. DVT prophylaxis; subcutaneous Lovenox full code Diet-heart healthy diet Problem List: 1. Atypical chest pain Pain Ratin Pain Location: none Pain Goal: Remain pain free Pain Plan: nitroglycerine Tomorrow's Labs & Rationales: none Drew Luna MD 12/02/17 1553: Attending MD Review Statement Attending Statement Attending MD Statement: examined this patient, discuss w/resident/PA/SPECIALTY PLANT SUPERVISOR, agreed w/resident/PA/[employer]ANT SUPERVISOR, reviewed EMR data (avail), discussed with nursing, discussed with case mgmt, amended to note Attending Assessment/Plan: Patient seen and examined. Resting comfortably and not in any acute distress. No issues overnight. No events on telemetry monitoring. She denies chest pain or shortness of breath. Denies palpitations. She had a nuclear stress test done earlier today was reported as negative. Etiology of her chest pain is unknown but it has resolved. She complained of nonreproducible left-sided chest wall pain. Denied any epigastric discomfort. Denies reflux symptoms. Pain was not related to activity. Recommendations she is medically stable to be discharged home today. She however has been advised to follow-up with her primary care provider should her pain recur.
--- NOTE | 2017-12-02 08:16 | Patient Discharge Instructions ---
Discharge Instructions General Discharge Information You were seen/treated for: Atypical chest pain Watch for these problems: In case of chest pain, chest pressure, nausea, vomiting, abdominal pain more shortness of breath please go to nearest ER Special Instructions: Please follow-up with your primary care provider within 1-2 weeks of discharge. Please follow-up with your skilled helper within 1 weeks of discharge. Diet Continue normal diet: No Recommended Diet: Heart Healthy Activity Full Activity/No Limits: No Activity Self Limited: Yes Acute Coronary Syndrome Inclusion Criteria At DC or during hospital stay patient has or had the following: ACS DIAGNOSIS No Discharge Core Measures Meds if any: Prescribed or Continued at Discharge Meds if any: NOT Prescribed or Continued at Discharge Congestive Heart Failure Inclusion Criteria At DC or during hospital stay patient has or had the following: CHF DIAGNOSIS No Discharge Core Measures Meds if any: Prescribed or Continued at Discharge Meds if any: NOT Prescribed or Continued at Discharge Cerebrovascular accident Inclusion Criteria At DC or during hospital stay patient has or had the following: CVA/TIA Diagnosis No Discharge Core Measures Meds if any: Prescribed or Continued at Discharge Meds if any: NOT Prescribed or Continued at Discharge Venous thromboembolism Inclusion Criteria VTE Diagnosis No VTE Type NONE VTE Confirmed by (Test) NONE Discharge Core Measures - Per Current guidelines, there needs to be overlap - treatment for the first 5 days of Warfarin therapy. - If discharged on Warfarin prior to 5 days of - overlap therapy, the patient will need to be - assessed for post discharge needs including - *Post discharge parental anticoagulation - *Warfarin and/or parental anticoagulation education - *Follow up date to check INR post discharge At least 5 days overlap therapy as Inpatient No Meds if any: Prescribed or Continued at Discharge Note: Overlap Therapy is Warfarin and Anticoagulant Meds if any: NOT Prescribed or Continued at Discharge
--- NOTE | 2017-12-02 10:08 | PN- Cardiology ---
Subjective Subjective: The patient reports that she is feeling better. No current chest pain. No shortness of breath. No diaphoresis. No palpitations. Objective Vital Signs and I&Os Vital Signs Date Time Temp Pulse Resp B/P B/P Pulse O2 O2 Flow FiO2 Mean Ox Delivery Rate 12/02 0624 97.8 54 20 106/54 96 Room Air 12/01 2144 98.1 78 18 118/70 94 12/01 1414 97.6 72 18 110/62 98 Room Air Intake & Output 12/02 1600 12/02 0800 12/02 0000 12/01 1600 12/01 0800 12/01 0000 Intake Total 100 100 200 Output Total 600 Balance -500 100 200 Intake, Oral 100 100 200 Output, Urine 600 Patient 150 lb Weight Physical Exam: Gen: The patient is in no acute distress HEENT: Normal nose, ears, and oropharynx. Pupils equal bilaterally. Conjunctiva normal. Neck: Supple with no JVD, no masses, and no thyromegaly Lungs: Clear to auscultation with normal respiratory effort Heart: RRR, S1, S2, no murmurs. No peripheral edema, 2+ pulses in the lower extremities bilaterally Abdomen: Soft, nontender, no masses. No hepatomegaly. No splenomegaly Extremities: No clubbing or cyanosis. Normal muscle strength in the upper and lower extremities Skin: Normal skin turgor with no skin ulcers or lesions noted. Neuro: Cranial nerves intact. Sensation intact Current Medications: Current Medications Sig/Benjamin Start time Last Medication Dose Route Stop Time Status Admin Acetaminophen 650 MG Q6P PRN 11/30 2199 AC PO Acetaminophen 1,000 MG Q6P PRN 11/30 2199 AC IV Aspirin Buffered 81 MG QPM 12/01 2200 AC 12/01 PO 220 Atorvastatin Calcium 40 MG 1700 11/30 2215 AC 12/01 PO 1710 Dipyridamole 40 MG ONE ONE 12/02 0900 DC Dextrose/Water 32 ML IV 12/02 0901 Enoxaparin Sodium 40 MG DAILY 12/01 1000 AC 12/02 SC 0918 Morphine Sulfate 4 MG Q4P PRN 11/30 2199 AC IV Nitroglycerin 0.5 GM Q6P PRN 11/30 2214 AC TOP Ondansetron HCl 4 MG Q6P PRN 11/30 2199 AC IV Results Last 48 Hrs of Labs/Mics: Laboratory Tests 12/02/17 0715: Anion Gap 14, Estimated GFR > 60, BUN/Creatinine Ratio 23.3 12/01/17 1005: Troponin I < 0.01 12/01/17 1005: Anion Gap 16, Estimated GFR > 60, BUN/Creatinine Ratio 21.7, Triglycerides 66, Cholesterol 144, LDL Cholesterol, Calc 84, HDL Cholesterol 47, Cholesterol/HDL Ratio 3, CBC w Diff NO MAN DIFF REQ, RBC 4.33, MCV 85.3, MCH 28.3, MCHC 33.2, RDW 14.8 H, MPV 8.8, Gran % 55.6, Lymphocytes % 33.5, Monocytes % 6.9, Eosinophils % 3.5, Basophils % 0.5, Absolute Granulocytes 3.6, Absolute Lymphocytes 2.2, Absolute Monocytes 0.5, Absolute Eosinophils 0.2, Absolute Basophils 0 12/01/17 0200: Troponin I < 0.01 11/30/171947: Anion Gap 15, Estimated GFR > 60, BUN/Creatinine Ratio 21.4, Glucose 101 H, Hemoglobin A1c 5.9 H, Calcium 9.6, Total Bilirubin 0.3, AST 26, ALT 33, Alkaline Phosphatase 86, Troponin I < 0.01, Total Protein 7.5, Albumin 4.3, Globulin 3.2, Albumin/Globulin Ratio 1.3, Amylase 82, Lipase 128, TSH 3.550 11/30/171944: PT 11.2, INR 1.07, APTT 32, D-Dimer High Sensitivty < 200, CBC w Diff NO MAN DIFF REQ, RBC 4.61, MCV 84.8, MCH 27.9, MCHC 32.9 L, RDW 14.9 H, MPV 8.6, Gran % 53.7, Lymphocytes % 36.0, Monocytes % 7.1, Eosinophils % 2.6, Basophils % 0.6, Absolute Granulocytes 4.9, Absolute Lymphocytes 3.3, Absolute Monocytes 0.6, Absolute Eosinophils 0.2, Absolute Basophils 0.1 Recent Imaging Studies: Echocardiogram 12/01/17: Normal left and right ventricular systolic function. No significant valvular abnormalities noted. Assessment/Plan Assessment/Plan Assessment: 1. Chest pain, ruled out for myocardial infarction 2. Intermittent left bundle branch block Plan: * Continue aspirin * Sublingual nitroglycerin as needed * Persantine sestamibi stress test today * If no ischemia seen on stress test, then the patient will be discharged to home later today. * Follow up in the office in 1-2 weeks for Continue telemetry? Yes
--- NOTE | 2017-12-02 10:19 | Discharge Summary ---
Visit Information Visit Dates Admission Date: 11/30/17 Discharge Date: 12/02/17 Hospital Course Course Attending Physician: Drew Luna MD Primary Care Physician: Beverley TARANGO,[facility] Course: Ms. Reed is a 62 y/o lady with PMH significant for hyperlipidemia and anxiety presents with chest pain under her left breast starting 11/26/2017. Patient was in her usual state of health, when she noticed burning chest pain under her left breast, sometimes radiating to her back. She took Tylenol for the pain, thinking that she might have pulled her muscle, which helped to relieve the pain. Pain is nonexertional without any precipitating or aggravating factors. Continued to get the chest pain on and off. Her last episode of chest pain was on the day of admission, when her took her to the urgent care clinic and she was sent to the ER after finding some changes in her EKG. Also reported 3 episodes of diarrhea on Saturday which have resolved since then. Denies any shortness of breath, palpitations, cough, sputum production, fever/chills, abdominal pain, diarrhea or nausea/vomiting. Also denied any previous episodes of similar chest pain. Hospital course Patient admitted for atypical chest pain. Troponins were negative. EKG showed intermittent left bundle branch block. She was evaluated by hot metal mixer operator helper who suggested nuclear stress test. Patient underwent an echocardiogram which showed an ejection fraction of 60-65% [reports en closed]. Since admission patient didn't have any further episodes of chest pain. Patient had her nuclear stress test which showed "small fixed" abnormality [reports enclosed]. Patient sent home with her home medication atorvastatin, aspirin. Patient advised to follow-up with her primary care physician and Dr. Shukla as outpatient within 1-2 weeks of discharge. Echocardiogram CONCLUSIONS Normal left and right ventricular systolic function. No significant valvular abnormalities noted. Chest x-ray next IMPRESSION: No acute pulmonary process. Nuclear stress test A small fixed perfusion abnormality is present that involves the apex and adjacent septal apical wall. Minimal reversible component may be present but the abnormality appears predominantly fixed. Diffuse left ventricular hypokinesis is present in this is slightly more severe in the region of diminished perfusion at the apex and apical septal wall. Complications: none Allergies: Coded Allergies: guaifenesin (From MUCINEX) (PAIN IN BACK AND LUNGS 11/30/17) Uncoded Allergies: SEASONAL (06/13/15) Disposition Summary Disposition Principal Diagnosis: chest pain Additional Diagnosis: Hyperlipidemia Discharge Disposition: home or self care Discharge Instructions General Discharge Information Code Status: Full Code Patient's Diet: Heart healthy diet Patient's Activity: As tolerated Follow-Up Instructions/Appts: Please follow-up with your primary care physician within 1-2 weeks of discharge Please follow-up with hot metal mixer operator helper Dr. Shukla within 1-2 weeks of discharge. Medications at Discharge Discharge Medications: Continue taking these medications: Atorvastatin Calcium (Atorvastatin Calcium) 10 MG TABLET 1 Tablet ORAL DAILY Qty = 90 Comments: Last Taken:12/02/17 Time:1700 Aspirin (Ecotrin*) 81 MG TABLET. 1 Tablet ORAL Every night Copies To: Beverley TARANGO,Janeen Attending MD Review Statement Documenting Attending: Drew Luna MD Other Findings: Discharged in stable condition
--- NOTE | 2017-12-02 15:18 | IV DIPYRIDAMOLE NUCLEAR STRESS ---
Clinical Diagnosis: Chest Pain Handbag Operator: Peggy Smith IV DIPYRIDAMOLE INFUSED: 40 mg IV AMINOPHYLLINE INFUSED: 0 mg PATIENT WEIGHT: 150 lbs INTERPRETATION: The patient's baseline EKG showed normal sinus rhythm and left bundle branch block at 89 BPM. Baseline B/P 126/80. The patient received 40 mg of dipyridamole infused intravenously over a 4 minute period. TC99M Myoview was injected after dipyridamole infusion. The patient tolerated the infusion well. There were no EKG changes seen following pharmacologic infusion. Arrhythmias: None IMPRESSION: The test was supervised by the interpreting Pulp Grinder And Blender, who was in attendance during the entire test. No EKG evidence of stress induced myocardial ischemia. See separately dictated Nuclear Report.
--- NOTE | 2017-12-02 17:34 | NUCLEAR MEDICINE REPORT ---
PERSANTINE STRESS AND RESTING SPECT MYOCARDIAL PERFUSION IMAGING STUDY WITH GATED SPECT IMAGES: CLINICAL INDICATION: Chest pain. PROCEDURE: Regional myocardial perfusion was assessed using a 1 day protocol. Stress images were obtained on 12/02/2017 following the intravenous administration of 17.9 mCi Tc 99m Myoview. Stress consisted of 40 mg Persantine given intravenously. Following the sestamibi injection, no aminophylline was given intravenously. Rest images were obtained 12/02/2017 following the intravenous administration of 31 mCi Technetium 99m Myoview. Single photon emission tomographic (SPECT) images were obtained. SPECT images were acquired in a 64 x 64 matrix of 64 projections over 180 degrees. These were reconstructed into standard short axis, horizontal and vertical long axis cardiac projections. FINDINGS: The post stress images showed left ventricular chamber to be normal in size. There is a small focus of moderately decreased activity present that involves the apex and adjacent apical septal wall. There is also mild diffuse decrease in activity in the inferior bilateral that may be due to attenuation by the adjacent diaphragm. The activity in the other wilson appears normal. Rest images are similar in appearance to the post stress images, with a possible minimal improvement in the apical septal wall compared to the post stress images. The images were obtained using a gated SPECT technique, which permits visualization of wall motion and calculation of the left ventricular ejection fraction. Left ventricular chamber is normal in size. There is a mild diffuse left ventricular hypokinesis and this is most severe at the apex and apical septal wall in the region of decreased perfusion. The calculated left ventricular ejection fraction is 44% on the stress study. No previous study is available for comparison. IMPRESSION: A small fixed perfusion abnormality is present that involves the apex and adjacent septal apical wall. Minimal reversible component may be present but the abnormality appears predominantly fixed. Diffuse left ventricular hypokinesis is present in this is slightly more severe in the region of diminished perfusion at the apex and apical septal wall.
== END 2017-12-02 19:03 ==
LOC: ERH 19:03 → 1NO 20:38 → ERHI 20:38 → ENRESERV 22:32 → ENTRNSPT 22:43 → EDTRNSPTSTS 22:48 → 1NO 22:59 → CMPTRNSPT 23:01 → 1NO 12-01 10:37
PROVIDERS: Emergency Medicine; Student in an Organized Health Care Education/Training Program
DX: R07.9 Chest pain, unspecified (principal); E78.5 Hyperlipidemia, unspecified; F41.9 Anxiety disorder, unspecified; Z79.82 Long term (current) use of aspirin; I44.7 Left bundle-branch block, unspecified
CPT/HCPCS: 36415; 71046; 78452; 82436; 93005; 93010; 93016; 93017; 93306; 96372; A9502; G0378; J1245; J1650; J2405

== ENCOUNTER 2017-12-03 16:17 | Emergency (ER) | payer OTHER ==
[~2017-12-03] VITALS: Ht 165.1 cm; Wt 68.0 kg
[~2017-12-03 16:17] MED LIST changes: +ASPIRIN EC81 M1 PO; +ATORVASTATIN CA10 M1 PO
[2017-12-03 16:52] LABS: ABSOLUTE BASOPHIL COUNT 0.1 /CUMM (0.0-0.2); ABSOLUTE EOSINOPHIL COUNT 0.1 /CUMM (0.0-0.7); ABSOLUTE GRANULOCYTE CT 5.2 /CUMM (1.4-6.5); ABSOLUTE LYMPH COUNT 2.3 /CUMM (1.2-3.4); ABSOLUTE MONOCYTE COUNT 0.6 /CUMM (0.10-0.60); BASOPHIL % 0.6 % (0.0-2.0); EOSINOPHIL % 1.4 % (0-5); GRANULOCYTE % 63.2 % (42.2-75.2); HEMATOCRIT 40.6 % (37-47); MEAN CORPUSCULAR HGB 28.2 PG (27.0-31.0); MEAN CORPUSCULAR HGB CONC 33.2 G/DL (33.0-37.0); MEAN PLATELET VOLUME 8.7 FL (7.4-10.4); PLATELET COUNT 293 /CUMM (130-400); RBC DISTRIBUTION WIDTH 14.6 % (11.5-14.5); RED BLOOD CELL CT 4.78 /CUMM (4.20-5.40); WHITE BLOOD CELL COUNT 8.2 /CUMM (4.8-10.8)
--- NOTE | 2017-12-03 19:18 | ED CARDIAC/CP/PALPITATIONS ---
History of Present Illness General Chief Complaint: Chest Pain Stated Complaint: CP SINCE LAST PM, SOB, D/C FROM TELE 12/02/2017 Source: patient Exam Limitations: no limitations Vital Signs & Intake/Output Vital Signs & Intake/Output Vital Signs Date Time Temp Pulse Resp B/P B/P Pulse O2 O2 Flow FiO2 Mean Ox Delivery Rate 12/03 2107 97.4 77 18 115/57 98 Room Air 12/03 191 Room Air 12/03 1621 97.9 94 18 152/74 96 Room Air Allergies Coded Allergies: guaifenesin (From MUCINEX) (PAIN IN BACK AND LUNGS 11/30/17) Uncoded Allergies: SEASONAL (06/13/15) Reconcile Medications Aspirin (Ecotrin*) 81 MG TABLET.DR 1 TAB PO QPM HEART/BLOOD (Reported) Atorvastatin Calcium 10 MG TABLET 1 TAB PO DAILY CHOLESTEROL (Reported) Triage Note: PT TO TRIAGE COMPLAINS OF NON RADIATING L SIDE CP THAT STARTED THIS AM, PAIN HAS BEEN CONSTANT AND FEELS SOB. PT STATES THAT SHE RECENTLY HAD 2 STRESS TEST AND THE LAST ONE WAS NOT GOOD PER HER DOCTOR Triage Nurses Notes Reviewed? yes Onset: Gradual Duration: better, gone now Timing: single episode today Radiation: no radiation HPI: Patient is 62-year-old female with a past medical history of anxiety and hyperlipidemia who is admitted for observation to [facility] and discharged yesterday in which she had unremarkable EKGs and sets of troponin ejection fracture noted 6065% patient will receive a cardiac stress test in the following week, patient states that today she woke up in her normal state of health approximately 11 AM 15 minutes after eating breakfast she had acute onset of left-sided anterior chest pain and pressure described as mild in nature symptoms lasted for approximately 4 hours and while in the waiting room symptoms completely resolved. Patient denies any symptoms of fever chills cough shortness of breath or hemoptysis arm pain jaw pain nausea vomiting diaphoresis leg swelling Patient did take therapeutic aspirin Past History Travel History Traveled to [place] past 21 day No Medical History Any Pertinent Medical History? see below for history Neurological: NONE EENT: NONE Cardiovascular: hyperlipidemia Respiratory: NONE Gastrointestinal: NONE Hepatic: NONE Renal: NONE Musculoskeletal: NONE Psychiatric: anxiety Endocrine: NONE Blood Disorders: NONE Cancer(s): NONE RN CLINICAL/Reproductive: NONE History of MRSA: No History of VRE: No History of CDIFF: No Surgical History Surgical History: C-SECT X 4 Psychosocial History Services at Home None What is your primary language Vietnamese Tobacco Use: Never used ETOH Use: denies use Illicit Drug Use: denies illicit drug use Family History Family History, If Any: MOTHER Myocardial infarction, Onset: 60+. Hx Contributory? No Review of Systems Review of Systems Constitutional: Reports: no symptoms. EENTM: Reports: no symptoms. Respiratory: Reports: see HPI. Cardiovascular: Reports: see HPI. GI: Reports: no symptoms. Genitourinary: Reports: no symptoms. Musculoskeletal: Reports: no symptoms. Skin: Reports: no symptoms. Neurological/Psychological: Reports: no symptoms. Hematologic/Endocrine: Reports: no symptoms. Immunologic/Allergic: Reports: no symptoms. All Other Systems: Reviewed and Negative Physical Exam Physical Exam General Appearance: no apparent distress, alert, comfortable Head: atraumatic Eyes: Bilateral: normal appearance. Ears, Nose, Throat: normal pharynx, normal ENT inspection, hearing grossly normal Neck: normal inspection Respiratory: normal breath sounds, chest non-tender, no respiratory distress Cardiovascular: regular rate/rhythm Peripheral Pulses: 2+ radial (R) Gastrointestinal: normal bowel sounds, soft, non-tender Extremities: normal inspection Neurologic/Psych: no motor/sensory deficits, awake, alert, oriented x 3, normal gait, normal mood/affect Skin: intact, normal color, warm/dry Core Measures ACS in differential dx? Yes CVA/TIA Diagnosis No Sepsis Present: No Sepsis Focused Exam Completed? No Progress Differential Diagnosis: AMI, aortic dissection, atrial fibrillation, cholecystitis, CHF/pulm edema, costochondritis, hyperkalemia, hypovolemia, hyperthyroid, hyperventilation, myocarditis, pancreatitis, pericarditis, pneumonia, pneumothorax, pulmonary embolism, PUD/GERD, PVCs/PACs, respiratory failure, sepsis, unstable angina, V-fib/V-Tach Plan of Care: Orders Procedure Date/time Status TROPONIN LEVEL 12/03 2032 Complete EKG 12/03 2032 Active Telemetry/Post Closing Specialist 12/03 1920 Active Add-on Test (ER Only) 12/03 1919 Active D-DIMER 12/03 1636 Complete TROPONIN LEVEL 12/03 1628 Complete COMPREHENSIVE METABOLIC PANEL 12/03 1628 Complete CBC WITHOUT DIFFERENTIAL 12/03 162 Complete EKG 12/03 1621 Active Laboratory Tests 12/03/17 2053: Troponin I < 0.01 12/03/17 1636: Anion Gap 17 H, Estimated GFR > 60, BUN/Creatinine Ratio 20.0, Glucose 92, Calcium 9.7, Total Bilirubin 0.4, AST 24, ALT 29, Alkaline Phosphatase 99, Troponin I < 0.01, Total Protein 7.7, Albumin 4.5, Globulin 3.2, Albumin/ Globulin Ratio 1.4, D-Dimer High Sensitivty < 200, CBC w Diff NO MAN DIFF REQ, RBC 4.78, MCV 85.0, MCH 28.2, MCHC 33.2, RDW 14.6 H, MPV 8.7, Gran % 63.2, Lymphocytes % 27.9, Monocytes % 6.9, Eosinophils % 1.4, Basophils % 0.6, Absolute Granulocytes 5.2, Absolute Lymphocytes 2.3, Absolute Monocytes 0.6, Absolute Eosinophils 0.1, Absolute Basophils 0.[address] Shukla who is aware patient's presentation the emergency room for chest pain however patient has been asymptomatic since 1629 he advised that repeat troponins and EKG was advised if patient is still asymptomatic, Patient has been reevaluated on multiple occasions noted to be resting consciously no symptoms denies any chest pain 4 hour interval of troponin will be ordered with EKG Patient again was reevaluated unremarkable findings on exam denies any symptoms Patient's repeat troponin was unremarkable as well as EKG. Upon discharge patient looks well no apparent distress and has been asymptomatic in the emergency room Diagnostic Imaging: Viewed by Me: Radiology Read. Radiology Impression: no acute abnormality CXR Impression: no acute abnormality, no infiltrates Initial ED EKG: NSR, 99 BPM Prior EKG: unchanged Comments: PATIENT: JOSE NDIAYE PRESENT AGE: 62 PATIENT ACCOUNT NO: [id number] : 54 LOCATION: [facility] ORDERING PHYSICIAN: Guillermo MESSINA SERVICE DATE: 12/03/17 EXAM TYPE: RAD - XRY-CHEST XRAY, TWO VIEWS EXAMINATION: XR CHEST CLINICAL INFORMATION: Chest pain. COMPARISON: Chest radiograph 11/30/2017. TECHNIQUE: 2 views of the chest were obtained. FINDINGS: Lungs are well-expanded. There is no focal consolidative disease, pleural effusion, or pneumothorax. The cardiac silhouette and upper mediastinal contours are normal. No acute osseous finding. IMPRESSION: Unremarkable chest radiograph. No consolidative disease or effusion. DICTATED BY: Fidencio Connolly MD DATE/TIME DICTATED:12/03/172038 DOG BEAUTICIAN:CONNOR DATE/TIME TRANSCRIBED:12/03/172038 Departure Departure Disposition: HOME OR SELF CARE Condition: Stable Clinical Impression Primary Impression: Chest pain Referrals: Janeen Lowery MD (PCP/Family) Additional Instructions: As discussed continue home medications as directed and follow-up with your mixed animal veterinarian Dr. Shukla tomorrow if symptoms worsen or if he develop new concerning symptom return to emergency room Departure Forms: Customer Survey General Discharge Information Critical Care Note Critical Care Note Critical Care Time: non-applicable
--- NOTE | 2017-12-03 20:48 | RADIOLOGY REPORT ---
EXAMINATION: XR CHEST CLINICAL INFORMATION: Chest pain. COMPARISON: Chest radiograph 11/30/2017. TECHNIQUE: 2 views of the chest were obtained. FINDINGS: Lungs are well-expanded. There is no focal consolidative disease, pleural effusion, or pneumothorax. The cardiac silhouette and upper mediastinal contours are normal. No acute osseous finding. IMPRESSION: Unremarkable chest radiograph. No consolidative disease or effusion.
[2017-12-03 21:08] VITALS: BP 115/57
== END 2017-12-03 22:00 ==
LOC: ERH 16:17
PROVIDERS: Emergency Medicine
DX: R07.89 Other chest pain (principal)
CPT/HCPCS: 71046; 93005; 93010